=== PATIENT | female | born 1965 | race Caucasian/White ===

== ENCOUNTER 2021-03-01 21:38 | Inpatient (IN) | payer OTHER ==
[~2021-03-01] VITALS: Ht 152.4 cm; Wt 96.9 kg
[2021-03-01] MEDS ORDERED: 'KLONOPIN0.5 MG PO (22:01)
[2021-03-01 22:02] LABS: BASO % 0.6 % (0.0-1.0); EOS # 0.2 10*3/uL (0.0-0.4); HEMATOCRIT 39.5 % (37.0-47.0); LYMPH # 1.3 10*3/uL (1.3-4.4); LYMPH % 18.6 % (27.0-41.0); MEAN CELL VOLUME 89.8 fl (81.0-99.0); MEAN CORPUSCULAR HGB 26.4 pg (27.0-31.0); MEAN CORPUSCULAR HGB CONC 29.4 g/dl (33.0-37.0); MEAN PLATELET VOLUME 9.8 fl (9.6-12.3); MONO # 0.3 10*3/uL (0.1-1.0); MONO % 4.2 % (3.0-9.0); NEUT # 5.1 10*3/uL (2.3-7.9); NEUT % 73.3 % (47.0-73.0); PLATELET COUNT AUTOMATED 207 10*3/uL (130-400); RED CELL DISTRI WIDTH 14.1 % (0-14.5); WHITE BLOOD COUNT 6.9 10*3/uL (4.8-10.8)
[2021-03-01] MEDS ORDERED: BUDESONIDE0.5 MG/2 M ENT (22:07)
[2021-03-01] MEDS ORDERED: FEROSUL325 MG PO (22:14)
[2021-03-01] MEDS ORDERED: PROZAC20 MG PO (22:15)
[2021-03-01] MEDS ORDERED: NEURONTIN300 MG PO (22:15)
[2021-03-01] MEDS ORDERED: MAG-OXIDE200 MG PO (22:16)
[2021-03-01] MEDS ORDERED: OXYBUTYNIN10 MG PO (22:17)
[2021-03-01 22:23] LABS: ALBUMIN 2.8 gm/dl (3.1-4.5); ALKALINE PHOSPHATASE 130 U/L (45-117); BUN 10 mg/dl (7-24); CHLORIDE 105 mmol/L (98-107); CREATININE 0.47 mg/dL (0.55-1.02); POTASSIUM 3.7 mmol/L (3.5-5.1); SGOT/AST 19 IU/L (3-35); SGPT/ALT 19 U/L (12-78); SODIUM 141 mmol/L (136-145); TOTAL PROTEIN 7.7 gm/dL (6.4-8.2)
[2021-03-01] MEDS ORDERED: KLOR-CON M2020 ME1 PO (22:23)
[2021-03-01] MEDS ORDERED: PRAVASTATIN SOD40 MG PO (22:24)
[2021-03-01] MEDS ORDERED: PROTONIX40 MG PO (22:24)
[2021-03-01] MEDS ORDERED: SEROQUEL50 MG PO (22:25)
[2021-03-01 23:35] VITALS: BP 100/59
[2021-03-02] VITALS (13 sets, daily range): BP systolic 92–145; BP diastolic 47–94
[2021-03-02 05:32] LABS: ALKALINE PHOSPHATASE 126 U/L (45-117); BUN 10 mg/dl (7-24); CHLORIDE 103 mmol/L (98-107); CHOLESTEROL 153 mg/dL (<200); CREATININE 0.35 mg/dL (0.55-1.02); LDL CHOLESTEROL 80 mg/dL (9-159); POTASSIUM 4.1 mmol/L (3.5-5.1); SGOT/AST 16 IU/L (3-35); SGPT/ALT 18 U/L (12-78); SODIUM 140 mmol/L (136-145); TOTAL PROTEIN 7.5 gm/dL (6.4-8.2); TRIGLYCERIDES 56 mg/dl (<150)
[2021-03-02 06:18] LABS: BASO % 0.6 % (0.0-1.0); EOS % 0.6 % (1.0-4.0); LYMPH # 0.8 10*3/uL (1.3-4.4); LYMPH % 11.7 % (27.0-41.0); MEAN CELL VOLUME 88.3 fl (81.0-99.0); MEAN CORPUSCULAR HGB 26.3 pg (27.0-31.0); MEAN CORPUSCULAR HGB CONC 29.7 g/dl (33.0-37.0); MEAN PLATELET VOLUME 10.7 fl (9.6-12.3); MONO # 0.1 10*3/uL (0.1-1.0); MONO % 1.9 % (3.0-9.0); NEUT # 5.8 10*3/uL (2.3-7.9); NEUT % 84.9 % (47.0-73.0); PLATELET COUNT AUTOMATED 244 10*3/uL (130-400); RED BLOOD COUNT 4.19 10*6/uL (4.10-5.10); WHITE BLOOD COUNT 6.8 10*3/uL (4.8-10.8)
[2021-03-02 06:29] LABS: INTERNATIONAL NORM RATIO 1.1 (2.0-3.5)
[2021-03-02 06:46] LABS: VITAMIN D, 25-HYDROXY 68.3 ng/mL (30-100)
[2021-03-02] MEDS ORDERED: BENADRYL ALLERG25 M5 PO (09:07)
[2021-03-02] MEDS ORDERED: FLEET ENEMA 13133 ML R (09:09)
[2021-03-02] MEDS ORDERED: LOPERAMIDE HCL2 MG PO (09:11)
[2021-03-02] MEDS ORDERED: MOM30 M1 PO (10:27)
[2021-03-02] MEDS ORDERED: MIRALAX17 GM PO (10:28)
[2021-03-02] MEDS ORDERED: TRAMADOL HCL50 MG PO (10:31)
[2021-03-02] MEDS ORDERED: Ventolin 02.5 MG/3 M INH (10:33)
[2021-03-03] VITALS (7 sets, daily range): BP systolic 92–133; BP diastolic 61–85
[2021-03-03 06:19] LABS: BASO % 0.5 % (0.0-1.0); EOS % 0.2 % (1.0-4.0); HEMATOCRIT 35.7 % (37.0-47.0); LYMPH # 1.9 10*3/uL (1.3-4.4); LYMPH % 29.3 % (27.0-41.0); MEAN CELL VOLUME 86.9 fl (81.0-99.0); MEAN CORPUSCULAR HGB 26.3 pg (27.0-31.0); MEAN CORPUSCULAR HGB CONC 30.3 g/dl (33.0-37.0); MONO # 0.6 10*3/uL (0.1-1.0); MONO % 9.2 % (3.0-9.0); NEUT # 3.9 10*3/uL (2.3-7.9); NEUT % 60.5 % (47.0-73.0); PLATELET COUNT AUTOMATED 256 10*3/uL (130-400); RED BLOOD COUNT 4.11 10*6/uL (4.10-5.10); RED CELL DISTRI WIDTH 14.1 % (0-14.5); WHITE BLOOD COUNT 6.5 10*3/uL (4.8-10.8)
[2021-03-03 06:32] LABS: BUN 12 mg/dl (7-24); CHLORIDE 101 mmol/L (98-107); CREATININE 0.45 mg/dL (0.55-1.02); SODIUM 138 mmol/L (136-145)
[2021-03-03 06:33] LABS: POTASSIUM 3.1 mmol/L (3.5-5.1)
[2021-03-04] VITALS: BP 112/59
[2021-03-04 04:00] VITALS: BP 114/65
[2021-03-04 06:27] LABS: BUN 12 mg/dl (7-24); CHLORIDE 107 mmol/L (98-107); CREATININE 0.34 mg/dL (0.55-1.02); POTASSIUM 3.5 mmol/L (3.5-5.1); SODIUM 142 mmol/L (136-145)
[2021-03-04 06:33] LABS: BASO % 0.4 % (0.0-1.0); HEMATOCRIT 32.9 % (37.0-47.0); LYMPH # 2.2 10*3/uL (1.3-4.4); LYMPH % 41.6 % (27.0-41.0); MEAN CORPUSCULAR HGB 26.5 pg (27.0-31.0); MEAN CORPUSCULAR HGB CONC 30.4 g/dl (33.0-37.0); MEAN PLATELET VOLUME 10.7 fl (9.6-12.3); MONO # 0.5 10*3/uL (0.1-1.0); MONO % 9.7 % (3.0-9.0); NEUT # 2.6 10*3/uL (2.3-7.9); NEUT % 48.1 % (47.0-73.0); PLATELET COUNT AUTOMATED 223 10*3/uL (130-400); RED BLOOD COUNT 3.78 10*6/uL (4.10-5.10); RED CELL DISTRI WIDTH 14.3 % (0-14.5); WHITE BLOOD COUNT 5.4 10*3/uL (4.8-10.8)
[2021-03-04 08:00] VITALS: BP 120/62
[2021-03-04 12:00] VITALS: BP 134/60
[2021-03-04 16:00] VITALS: BP 118/60
[2021-03-04 20:00] VITALS: BP 124/59
[2021-03-05] VITALS: BP 107/52
[2021-03-05 04:00] VITALS: BP 131/91
[2021-03-05 08:00] VITALS: BP 130/72
[2021-03-05 12:00] VITALS: BP 124/70
[2021-03-05] MEDS ORDERED: CEFEPIME HYDROCH2 GM IJ (14:07)
[2021-03-05] MEDS ORDERED: NEURONTIN300 MG PO (15:56)
[2021-03-05] MEDS ORDERED: TRAMADOL HCL50 MG PO (15:56)
[2021-03-05] MEDS ORDERED: 'KLONOPIN0.5 MG PO (15:56)
[2021-03-05 16:00] VITALS: BP 154/74
== END 2021-03-05 19:20 | DRG 720 ==
LOC: ED 21:38 → EDHOLD 03-02 00:21 → ICCU 03-02 00:21
PROVIDERS: Hospitalist; Internal Medicine; ADMIT Emergency Medicine; ATTEND Emergency Medicine
PROC: 5A1935Z Respiratory Ventilation, Less than 24 Consecutive Hours (ICD-10-PCS; principal; 2021-03-03)
PROC: BD1BYZZ Fluoroscopy of Mouth/Oropharynx using Other Contrast (ICD-10-PCS; 2021-03-04)
PROC: 5A1935Z Respiratory Ventilation, Less than 24 Consecutive Hours (ICD-10-PCS; 2021-03-05)
PROC: 05HB33Z Insertion of Infusion Device into Right Basilic Vein, Percutaneous Approach (ICD-10-PCS; 2021-03-05)
DX: A41.9 Sepsis, unspecified organism (principal); E88.09 Other disorders of plasma-protein metabolism, not elsewhere classified; E44.0 Moderate protein-calorie malnutrition; Z20.822 Contact with and (suspected) exposure to COVID-19; G60.0 Hereditary motor and sensory neuropathy; J15.1 Pneumonia due to Pseudomonas; G71.00 Muscular dystrophy, unspecified; J96.21 Acute and chronic respiratory failure with hypoxia; E87.6 Hypokalemia; E66.01 Morbid (severe) obesity due to excess calories; G47.33 Obstructive sleep apnea (adult) (pediatric); J45.909 Unspecified asthma, uncomplicated; D64.9 Anemia, unspecified; F41.1 Generalized anxiety disorder; F32.A Depression, unspecified; E78.2 Mixed hyperlipidemia; Z88.1 Allergy status to other antibiotic agents; Z93.0 Tracheostomy status; Z87.81 Personal history of (healed) traumatic fracture; Z98.891 History of uterine scar from previous surgery; Z88.0 Allergy status to penicillin; Z88.8 Allergy status to other drugs, medicaments and biological substances; Z88.2 Allergy status to sulfonamides; Z79.899 Other long term (current) drug therapy; Z80.0 Family history of malignant neoplasm of digestive organs; Z79.51 Long term (current) use of inhaled steroids; Z68.41 Body mass index [BMI] 40.0-44.9, adult

== ENCOUNTER 2021-05-11 07:47 | Emergency (ER) | payer OTHER ==
[~2021-05-11] VITALS: Ht 152.4 cm; Wt 99.5 kg
[~2021-05-11 07:47] MED LIST: 'KLONOPIN0.5 MG PO; ANTI-DIARRHEAL2 MG PO; BENADRYL ALLERG25 M5 PO; BUDESONIDE0.5 MG/2 M ENT; CEFEPIME HYDROCH2 GM IJ; CLONAZEPAM0.5 M2 PO; DULCOLAX10 M1 R; FEOSOL325 MG PO; FEROSUL325 MG PO; FLEET ENEMA 13133 ML R; KLOR-CON M2020 ME1 PO; LEVOFLOXACIN750 M2 PO; LOPERAMIDE HCL2 MG PO; MAG-OXIDE200 MG PO; MAGOX 400400 MG PO; MIRALAX17 GM PO; MOM30 M1 PO; NEURONTIN300 MG PO; OXYBUTYNIN10 MG PO; PRAVASTATIN SOD40 MG PO; PREDNISONE10 MG PO; PROTONIX40 MG PO; PROZAC20 MG PO; PULMICORT0.5 MG/21 NEB; SEROQUEL50 MG PO; TRAMADOL HCL50 MG PO; VENTOLIN 02.5 MG/3 M INH; Ventolin 02.5 MG/3 M INH
[2021-05-11 08:26] LABS: BASO % 0.2 % (0.0-1.0); EOS # 0.1 10*3/uL (0.0-0.4); EOS % 1.9 % (1.0-4.0); HEMATOCRIT 35.2 % (37.0-47.0); LYMPH # 1.1 10*3/uL (1.3-4.4); LYMPH % 16.8 % (27.0-41.0); MEAN CELL VOLUME 90.3 fl (81.0-99.0); MEAN CORPUSCULAR HGB 26.7 pg (27.0-31.0); MEAN CORPUSCULAR HGB CONC 29.5 g/dl (33.0-37.0); MEAN PLATELET VOLUME 10.3 fl (9.6-12.3); MONO # 0.3 10*3/uL (0.1-1.0); MONO % 4.2 % (3.0-9.0); NEUT # 4.9 10*3/uL (2.3-7.9); NEUT % 76.7 % (47.0-73.0); PLATELET COUNT AUTOMATED 156 10*3/uL (130-400); WHITE BLOOD COUNT 6.4 10*3/uL (4.8-10.8)
[2021-05-11 08:36] LABS: ACT PARTIAL THROMBO TIME 20.7 SECONDS (20.0-32.1); INTERNATIONAL NORM RATIO 1.1 (2.0-3.5)
[2021-05-11 08:45] LABS: ALBUMIN 2.8 gm/dl (3.1-4.5); ALKALINE PHOSPHATASE 89 U/L (45-117); BUN 12 mg/dl (7-24); CHLORIDE 102 mmol/L (98-107); CREATININE 0.34 mg/dL (0.55-1.02); LIPASE 19 U/L (73-393); POTASSIUM 3.2 mmol/L (3.5-5.1); SGOT/AST 13 IU/L (3-35); SGPT/ALT 15 U/L (12-78); SODIUM 141 mmol/L (136-145); TOTAL PROTEIN 6.8 gm/dL (6.4-8.2)
[2021-05-11] MEDS ORDERED: SM ENEMA READY R (09:25)
== END 2021-05-11 10:28 ==
LOC: ED 07:47
PROVIDERS: Emergency Medicine
DX: R06.00 Dyspnea, unspecified (principal); I10 Essential (primary) hypertension; J45.909 Unspecified asthma, uncomplicated; K21.9 Gastro-esophageal reflux disease without esophagitis; Z88.0 Allergy status to penicillin; Z88.1 Allergy status to other antibiotic agents; Z88.6 Allergy status to analgesic agent; Z88.8 Allergy status to other drugs, medicaments and biological substances; Z91.018 Allergy to other foods; Z79.899 Other long term (current) drug therapy; Z98.890 Other specified postprocedural states